=== PATIENT | female | born 1985 | race Caucasian/White ===

== ENCOUNTER 2016-07-29 12:30 | Emergency (ER) | payer SELFPAY ==
--- NOTE | 2016-07-29 12:39 | ER Document Report ---
ED Medical Screen (RME) - General Stated Complaint: URINARY PROBLEM Time seen by provider: 12:37 Mode of Arrival: Ambulatory Information source: Patient Notes: 30 yo female presents to ed for urinary frequency urgency and pain with urination. for 3 weeks taken azo and cranberry. LMP 07/27/15 TRAVEL OUTSIDE OF THE [place] IN LAST 30 DAYS: No - HPI Onset: Other - 3 weeks Onset/Duration: Gradual, Intermittent, Worse Quality of pain: Burning Severity: Moderate Pain Level: 3 Associated Symptoms: Other - urinary symptoms Exacerbated by: Other - urination Relieved by: Denies - Related Data Smoking: Cigarettes, Less than 1 pack/day Frequency of alcohol use: None Drug Abuse: None Allergies/Adverse Reactions: Penicillins Allergy (Verified 07/29/16 12:36) Past Medical History - Past Medical History Cardiac Medical History: Reports: Hx Hypertension Malignancy Medical History: Reports: Hx Cervical Cancer Musculoskeltal Medical History: Reports Hx Arthritis, Reports Hx Musculoskeletal Deformity, Reports Hx Musculoskeletal Trauma - bilateral ankles and clavicle fracture Traumatic Medical History: Reports: Hx Fractures - Ankle and clavicle Past Surgical History: Reports: Hx Cholecystectomy, Hx Gynecologic Surgery - Cervix removed, Hx Tubal Ligation - Immunizations Hx Diphtheria, Pertussis, Tetanus Vaccination: Yes - 2010
[2016-07-29 13:09] LABS: APPEARANCE,URINE CLEAR; BILIRUBIN,URINE NEGATIVE (NEGATIVE); GLUCOSE, URINE NEGATIVE (NEGATIVE); KETONES,URINE NEGATIVE (NEGATIVE); LEUKOCYTE ESTERASE,URINE SMALL (NEGATIVE); NITRITE,URINE NEGATIVE (NEGATIVE); PROTEIN,URINE NEGATIVE (NEGATIVE); URINE SPECIFIC GRAVITY 1.017; UROBILINOGEN,URINE NEGATIVE mg/dL (<2.0)
--- NOTE | 2016-07-29 13:29 | ER Document Report ---
HPI - HPI Patient complains to provider of: urinary symptoms Onset: Other - 3 weeks Onset/Duration: Worse Quality of pain: Burning Pain Level: 3 Context: Patient complains of low back pain with dysuria and urinary frequency for the past 3 weeks. Patient states that her symptoms worsened over the past week. Patient denies any fever, nausea, or vomiting at this time. Patient also complains of lower pelvic tenderness that has started to develop. Associated Symptoms: Other - Dysuria, frequency, back pain. denies: Fever Exacerbated by: Denies Relieved by: Denies Similar symptoms previously: Yes Recently seen / treated by doctor: No - ROS ROS below otherwise negative: Yes Systems Reviewed and Negative: Yes All other systems reviewed and negative - CONSTITUTIONAL Constitutional: DENIES: Fever, Chills - RESPIRATORY Respiratory: DENIES: Trouble Breathing - GASTROINTESTINAL Gastrointestinal: REPORTS: Abdominal Pain. DENIES: Nausea, Patient vomiting, Diarrhea - URINARY Urinary: REPORTS: Dysuria, Frequency - REPRODUCTIVE LMP: 07/27/2016 Reproductive: DENIES: : - MUSCULOSKELETAL Musculoskeletal: REPORTS: Back Pain. DENIES: Extremity pain - DERM Skin Color: Normal Skin Problems: None Past Medical History - General Information source: Patient Last Menstrual Period: 07/28/2016 - Social History Smoking Status: Never Smoker Chew tobacco use (# tins/day): No Frequency of alcohol use: None Drug Abuse: None Occupation: none Lives with: Family Family History: CAD, COPD, CVA, DM, Hyperlipidemia, Hypertension, Malignancy, Thyroid Disfunction Patient has suicidal ideation: No Patient has homicidal ideation: No - Past Medical History Cardiac Medical History: Reports: Hx Hypertension Malignancy Medical History: Reports: Hx Cervical Cancer Musculoskeltal Medical History: Reports Hx Arthritis, Reports Hx Musculoskeletal Deformity, Reports Hx Musculoskeletal Trauma - bilateral ankles and clavicle fracture Traumatic Medical History: Reports: Hx Fractures - Ankle and clavicle Past Surgical History: Reports: Hx Cholecystectomy, Hx Gynecologic Surgery - Cervix removed, Hx Tubal Ligation - Immunizations Hx Diphtheria, Pertussis, Tetanus Vaccination: Yes - 2010 Vertical Provider Document - CONSTITUTIONAL Agree With Documented VS: Yes Exam Limitations: No Limitations General Appearance: WD/WN, No Apparent Distress - INFECTION CONTROL TRAVEL OUTSIDE OF THE [place] IN LAST 30 DAYS: No - HEENT HEENT: Atraumatic, Normocephalic - NECK Neck: Normal Inspection, Supple - RESPIRATORY Respiratory: Breath Sounds Normal, No Respiratory Distress, Chest Non-Tender O2 Sat by Pulse Oximetry: 100 - CARDIOVASCULAR Cardiovascular: Regular Rate, Regular Rhythm, No Murmur - GI/ABDOMEN Gastrointestinal: Abdomen Soft, Abdomen Tender - lower pelvic tenderness - BACK Back: Normal Inspection. negative: CVA Tenderness-Right, CVA Tenderness-Left - MUSCULOSKELETAL/EXTREMETIES Musculoskeletal/Extremeties: TRACY ELI - NEURO Level of Consciousness: Awake, Alert, Appropriate - DERM Integumentary: Warm, Dry, No Rash Course - Re-evaluation Re-evalutation: 07/29/16 16:21 Patient states low back pain is currently resolved but right lower quadrant and lower pelvic pain has worsened. Patient is requesting additional pain medication. 07/29/16 Patient's abdomen soft, no guarding, minimal lower pelvic tenderness. Discussed plan of care with patient. Discussed worsening signs or symptoms that patient should return immediately for. Patient verbalized understanding and agrees with plan of care. Patient presents with abdominal pain without signs of peritonitis or other life- threatening or serious etiology. Patient appears stable for discharge and has been instructed to return immediately if the symptoms worsen in any way. - Vital Signs Vital signs: Temp Pulse Resp BP Pulse Ox 98.1 F 82 20 150/97 H 100 07/29/16 12:39 07/29/16 12:39 07/29/16 12:39 07/29/16 12:39 07/29/16 12:39 - Laboratory Result Diagrams: 07/29/16 13:45 07/29/16 13:45 Laboratory results interpreted by me: 07/29/16 12:41 Urine Blood LARGE H Ur Leukocyte Esterase SMALL H 07/29/16 18:31 Labs- Entire Visit 07/29/16 07/29/16 07/29/16 12:41 12:41 13:45 WBC 11.3 H RBC 4.59 Hgb 14.0 Hct 40.1 MCV 87 MCH 30.5 MCHC 34.9 RDW 12.8 Plt Count 401 Seg Neutrophils % 64.2 Lymphocytes % 25.2 Monocytes % 6.6 Eosinophils % 3.1 Basophils % 0.9 Absolute Neutrophils 7.3 Absolute Lymphocytes 2.9 Absolute Monocytes 0.7 Absolute Eosinophils 0.4 Absolute Basophils 0.1 Sodium Potassium Chloride Carbon Dioxide Anion Gap BUN Creatinine Est GFR ( Amer) Est GFR (Non-Af Amer) Glucose Calcium Total Bilirubin Direct Bilirubin AST ALT Alkaline Phosphatase Total Protein Albumin Urine Color YELLOW Urine Appearance CLEAR Urine pH 5.0 Ur Specific [place] 1.017 Urine Protein NEGATIVE Urine Glucose (UA) NEGATIVE Urine Ketones NEGATIVE Urine Blood LARGE H Urine Nitrite NEGATIVE Urine Bilirubin NEGATIVE Urine Urobilinogen NEGATIVE Ur Leukocyte Esterase SMALL H Urine WBC (Auto) 4 Urine RBC (Auto) 171 Urine Bacteria (Auto) TRACE Squamous Epi Cells Auto 2 Urine Mucus (Auto) RARE Urine Ascorbic Acid NEGATIVE Urine HCG, Qual NEGATIVE Bacteria (Wet Prep) Trichomonas (Wet Prep) Vaginal WBC Vaginal RBC Vaginal Yeast Chlamydia DNA (PCR) N.gonorrhoeae DNA (PCR) 07/29/16 07/29/16 07/29/16 13:45 13:45 14:11 WBC RBC Hgb Hct MCV MCH MCHC RDW Plt Count Seg Neutrophils % Lymphocytes % Monocytes % Eosinophils % Basophils % Absolute Neutrophils Absolute Lymphocytes Absolute Monocytes Absolute Eosinophils Absolute Basophils Sodium 140.9 Potassium 4.1 Chloride 107 Carbon Dioxide 23 Anion Gap 11 BUN 15 Creatinine 0.67 Est GFR ( Amer) > 60 Est GFR (Non-Af Amer) > 60 Glucose 76 Calcium 9.7 Total Bilirubin 0.2 Direct Bilirubin 0.0 AST 13 L ALT 29 Alkaline Phosphatase 92 Total Protein 6.0 L Albumin 3.7 Urine Color YELLOW Urine Appearance CLEAR Urine pH 5.0 Ur Specific [place] 1.018 Urine Protein NEGATIVE Urine Glucose (UA) NEGATIVE Urine Ketones NEGATIVE Urine Blood NEGATIVE Urine Nitrite NEGATIVE Urine Bilirubin NEGATIVE Urine Urobilinogen NEGATIVE Ur Leukocyte Esterase NEGATIVE Urine WBC (Auto) 0 Urine RBC (Auto) 0 Urine Bacteria (Auto) Squamous Epi Cells Auto <1 Urine Mucus (Auto) Urine Ascorbic Acid NEGATIVE Urine HCG, Qual Bacteria (Wet Prep) Trichomonas (Wet Prep) Vaginal WBC Vaginal RBC Vaginal Yeast Chlamydia DNA (PCR) NOT DETECTED N.gonorrhoeae DNA (PCR) NOT DETECTED 07/29/16 14:11 WBC RBC Hgb Hct MCV MCH MCHC RDW Plt Count Seg Neutrophils % Lymphocytes % Monocytes % Eosinophils % Basophils % Absolute Neutrophils Absolute Lymphocytes Absolute Monocytes Absolute Eosinophils Absolute Basophils Sodium Potassium Chloride Carbon Dioxide Anion Gap BUN Creatinine Est GFR ( Amer) Est GFR (Non-Af Amer) Glucose Calcium Total Bilirubin Direct Bilirubin AST ALT Alkaline Phosphatase Total Protein Albumin Urine Color Urine Appearance Urine pH Ur Specific [place] Urine Protein Urine Glucose (UA) Urine Ketones Urine Blood Urine Nitrite Urine Bilirubin Urine Urobilinogen Ur Leukocyte Esterase Urine WBC (Auto) Urine RBC (Auto) Urine Bacteria (Auto) Squamous Epi Cells Auto Urine Mucus (Auto) Urine Ascorbic Acid Urine HCG, Qual Bacteria (Wet Prep) 3+ BACTERIA SEEN Trichomonas (Wet Prep) NO TRICHOMONAS SEEN Vaginal WBC FEW WBCS SEEN Vaginal RBC 3+ RBCS SEEN Vaginal Yeast NO YEAST SEEN Chlamydia DNA (PCR) N.gonorrhoeae DNA (PCR) 07/29/16 19:11 - Diagnostic Test Radiology reviewed: Image reviewed, Reports reviewed Discharge - Discharge Clinical Impression: Urinary symptom or sign, Flank pain Abdominal pain Qualifiers: Abdominal location: right lower quadrant Qualified Code(s): R10.31 - Right lower quadrant pain Condition: Stable Disposition: HOME, SELF-CARE Instructions: Abdominal Pain ([facility]), Observation for Appendicitis ([facility]), Constipation ([facility]), Flank Pain ([facility]) Additional Instructions: Return immediately for any new or worsening symptoms Followup with your primary care provider, call tomorrow to make a followup appointment Urine culture is pending, we will call if you need any additional treatment Stay well hydrated Your blood pressure was minimally elevated today. Have a primary doctor recheck this in the next few days Prescriptions: Phenazopyridine HCl [Pyridium 200 mg Tablet] 200 mg PO TID #12 tablet Promethazine HCl [Phenergan 25 mg Tablet] 25 mg PO Q6H PRN #10 tablet PRN Reason: Referrals: [facility] [Provider Group] - 08/01/16
[2016-07-29] MEDS ORDERED: IBUPROFEN 800 MG TABLET PO ONE (14:16)
[2016-07-29 14:17] LABS: ABSOLUTE BASOPHILS # (AUTO) 0.1 10^3/uL (0.0-0.2); ABSOLUTE EOSINOPHILS # (AUTO) 0.4 10^3/uL (0.0-0.6); ABSOLUTE LYMPHOCYTES (AUTO) 2.9 10^3/uL (0.5-4.7); ABSOLUTE MONOCYTES (AUTO) 0.7 10^3/uL (0.1-1.4); ABSOLUTE NEUT (AUTO) 7.3 10^3/uL (1.7-8.2); BASOPHILS % (AUTO) 0.9 % (0-2); EOSINOPHILS % (AUTO) 3.1 % (0-6); HEMATOCRIT 40.1 % (36.0-47.0); HGB HCT DIFFERENCE 1.9; LYMPHOCYTES % (AUTO) 25.2 % (13-45); MEAN CORPUSCULAR HEMOGLOBIN 30.5 pg (27.0-33.4); MEAN CORPUSCULAR HGB CONC 34.9 g/dL (32.0-36.0); MEAN CORPUSCULAR VOLUME 87 fl (80-97); MONOCYTES % (AUTO) 6.6 % (3-13); RED BLOOD COUNT 4.59 10^6/uL (3.72-5.28); RED CELL DISTRIBUTION WIDTH 12.8 % (11.5-14.0); SEGMENTED NEUTROPHILS % (AUTO) 64.2 % (42-78); WHITE BLOOD COUNT 11.3 10^3/uL (4.0-10.5)
[2016-07-29 14:21] LABS: APPEARANCE,URINE CLEAR; BILIRUBIN,URINE NEGATIVE (NEGATIVE); GLUCOSE, URINE NEGATIVE (NEGATIVE); KETONES,URINE NEGATIVE (NEGATIVE); LEUKOCYTE ESTERASE,URINE NEGATIVE (NEGATIVE); NITRITE,URINE NEGATIVE (NEGATIVE); PROTEIN,URINE NEGATIVE (NEGATIVE); URINE SPECIFIC GRAVITY 1.018; UROBILINOGEN,URINE NEGATIVE mg/dL (<2.0)
[2016-07-29] MEDS ORDERED: ONDANSETRON 4 MG TAB.RAPDIS PO ONE (14:34)
[2016-07-29 14:41] LABS: ALANINE AMINOTRANSFERASE 29 U/L (9-52); ALBUMIN 3.7 g/dL (3.5-5.0); ALKALINE PHOSPHATASE 92 U/L (38-126); ANION GAP 11 (5-19); ASPARTATE AMINO TRANSFERASE 13 U/L (14-36); BILIRUBIN,TOTAL 0.2 mg/dL (0.2-1.3); BLOOD UREA NITROGEN 15 mg/dL (7-20); CALCIUM 9.7 mg/dL (8.4-10.2); CARBON DIOXIDE 23 mmol/L (22-30); CHLORIDE 107 mmol/L (98-107); CREATININE RESULT 0.67 mg/dL (0.52-1.25); GLUCOSE 76 mg/dL (75-110); POTASSIUM 4.1 mmol/L (3.6-5.0); SODIUM 140.9 mmol/L (137-145)
[2016-07-29 15:54] LABS: CHLAM PCR NOT DETECTED (NOT DETECT)
[2016-07-29] MEDS ORDERED: NORMAL SALINE 1000 ML 1,000 ML IV ONE (16:19)
[2016-07-29] MEDS ORDERED: MORPHINE SULFATE 10 MG/ML INJ IV ONE (16:19)
[2016-07-29] MEDS ORDERED: MAGNESIUM CITRATE 296 ML BOTTLE PO ONE (18:30)
[2016-07-29] MEDS ORDERED: HYDROCODONE/ACETAMINOPHEN 5-325 MG 6 TAB/DSPK PO PRN (18:31)
[2016-07-29 18:39] VITALS: BP 133/88
== END 2016-07-29 18:47 | disposition home or self-care (01) ==
LOC: ER 12:30
DX: R30.0 Dysuria (principal); R35.0 Frequency of micturition; R10.31 Right lower quadrant pain; R10.2 Pelvic and perineal pain; M54.5 Low back pain; I10 Essential (primary) hypertension; Z85.41 Personal history of malignant neoplasm of cervix uteri; Z90.712 Acquired absence of cervix with remaining uterus; Z98.51 Tubal ligation status; Z90.49 Acquired absence of other specified parts of digestive tract
CPT/HCPCS: 99284; 51701; 96374; 36415; 87086; 87210; 85025; 81025; 80053; 81001; 87491; 87591; 76830; 93976; 74177; J3490; S0119; J2270

== ENCOUNTER 2016-10-01 11:08 | Emergency (ER) | payer SELFPAY ==
--- NOTE | 2016-10-01 11:16 | ER Document Report ---
ED Medical Screen (RME) - General Stated Complaint: LEFT FOOT PAIN Mode of Arrival: Ambulatory Information source: Patient Notes: Patient presents to the emergency department with complaints of left foot pain that started approximately 2 weeks ago. Patient reports plantar pain, to her heel. Patient also reports pain to the dorsal area. Denies trauma. Denies pmh of injury to foot I have greeted and performed a rapid initial assessment of this patient. A comprehensive ED assessment and evaluation of the patient, analysis of test results and completion of the medical decision making process will be conducted by additional ED providers. TRAVEL OUTSIDE OF THE [place] IN LAST 30 DAYS: No - Related Data Allergies/Adverse Reactions: Penicillins Allergy (Verified 07/29/16 12:36) Past Medical History - Past Medical History Cardiac Medical History: Reports: Hx Hypertension Malignancy Medical History: Reports: Hx Cervical Cancer Musculoskeltal Medical History: Reports Hx Arthritis, Reports Hx Musculoskeletal Deformity, Reports Hx Musculoskeletal Trauma - bilateral ankles and clavicle fracture Traumatic Medical History: Reports: Hx Fractures - Ankle and clavicle Past Surgical History: Reports: Hx Cholecystectomy, Hx Gynecologic Surgery - Cervix removed, Hx Tubal Ligation - Immunizations Hx Diphtheria, Pertussis, Tetanus Vaccination: Yes - 2010
--- NOTE | 2016-10-01 12:07 | ER Document Report ---
ED Extremity Problem, Lower - General Chief Complaint: Foot Pain Stated Complaint: LEFT FOOT PAIN Mode of Arrival: Ambulatory Information source: Patient Notes: 31 y/o F presents to ED c/o left foot pain. Pt reports over the last several months has had intermittently persistent left foot pain particularly to left heel area. States pain seems to be worse in the evenings after work or after prolonged standing or walking. Reports pain has become more persistent over the last week. Denies obvious injury or trauma, swelling, redness, warmth, numbness/ tingling, or discoloration. TRAVEL OUTSIDE OF THE [place] IN LAST 30 DAYS: No - HPI Patient complains to provider of: Pain Location: Foot Onset/Duration: Intermittent, Persistent Quality of pain: Achy Severity: Moderate Pain Level: 3 Context: Prolonged pressure on ext Recent injury: No Associated symptoms: Painful ambulation Exacerbated by: Movement, Walking Relieved by: Elevation, Ice, Rest - Related Data Allergies/Adverse Reactions: No Known Allergies Allergy (Unverified 10/01/16 11:15) Past Medical History - General Information source: Patient - Social History Smoking Status: Current Every Day Smoker Chew tobacco use (# tins/day): No Frequency of alcohol use: None Drug Abuse: None Lives with: Family Family History: CAD, COPD, CVA, DM, Hyperlipidemia, Hypertension, Malignancy, Thyroid Disfunction Patient has suicidal ideation: No Patient has homicidal ideation: No - Past Medical History Cardiac Medical History: Reports: Hx Hypertension Renal/ Medical History: Denies: Hx Peritoneal Dialysis Malignancy Medical History: Reports: Hx Cervical Cancer Musculoskeltal Medical History: Reports Hx Arthritis, Reports Hx Musculoskeletal Deformity, Reports Hx Musculoskeletal Trauma - bilateral ankles and clavicle fracture Traumatic Medical History: Reports: Hx Fractures - Ankle and clavicle Past Surgical History: Reports: Hx Cholecystectomy, Hx Gynecologic Surgery - Cervix removed, Hx Tubal Ligation - Immunizations Hx Diphtheria, Pertussis, Tetanus Vaccination: Yes Review of Systems - Review of Systems Constitutional: No symptoms reported EENT: No symptoms reported Cardiovascular: No symptoms reported Respiratory: No symptoms reported Gastrointestinal: No symptoms reported Genitourinary: No symptoms reported Female Genitourinary: No symptoms reported Musculoskeletal: See HPI Skin: No symptoms reported Hematologic/Lymphatic: No symptoms reported Neurological/Psychological: No symptoms reported -: Yes All other systems reviewed and negative Physical Exam - Vital signs Vitals: Temp Pulse Resp BP Pulse Ox 98.3 F 64 18 138/117 H 98 10/01/16 12:30 10/01/16 12:30 10/01/16 12:30 10/01/16 12:30 10/01/16 12:30 Interpretation: Hypertensive - asymptomatic HTN. Hx HTN states has not taken morning medication - General General appearance: Appears well, Alert In distress: None - HEENT Head: Normocephalic, Atraumatic Eyes: Normal Pupils: PERRL - Respiratory Respiratory status: No respiratory distress Chest status: Nontender Breath sounds: Normal Chest palpation: Normal - Cardiovascular Rhythm: Regular Heart sounds: Normal auscultation Murmur: No Pulses: Normal: Radial, Posterior tibial, Dorsalis pedis Normal capillary refill: Yes - Extremities General upper extremity: Normal inspection, Nontender, Normal color, Normal ROM , Normal strength, Normal temperature. No: Tender, Edema General lower extremity: Normal inspection, Nontender, Normal color, Normal ROM , Normal strength, Normal temperature, Normal weight bearing. No: Tender, Edema , Eduin's sign Calf: Normal, Nontender Ankle: Normal, Nontender Foot: Tender - mild tenderness with palpation to plantar aspect of left heel. No swelling, erythema, bruising, warmth, or discoloration. Motor and neurovascular function intact., No evidence of FB. No: Deformity, Edema, Instability, Puncture wound - Neurological Neuro grossly intact: Yes Cognition: Normal Orientation: AAOx4 [place] Coma Scale Eye Opening: Spontaneous [place] Coma Scale Verbal: Oriented [place] Coma Scale Motor: Obeys Commands [place] Coma Scale Total: 15 Speech: Normal Motor strength normal: LUE, RUE, LLE, RLE Sensory: Normal - Skin Skin Temperature: Warm Skin Moisture: Dry Skin Color: Normal Course - Re-evaluation Re-evalutation: 10/01/16 12:12 Pt hemodynamically stable, in no distress. Xray shows heel spur otherwise no significant abnormalities which correlates with patient's reported symptoms. Pt declined post-op shoe or crutches. Pt appears stable for discharge and agrees with home care, follow-up, and ED return precautions. - Vital Signs Vital signs: Temp Pulse Resp BP Pulse Ox 98.3 F 82 16 138/117 H 98 10/01/16 12:37 10/01/16 12:37 10/01/16 12:37 10/01/16 12:37 10/01/16 12:37 - Diagnostic Test Radiology reviewed: Image reviewed, Reports reviewed Discharge - Discharge Clinical Impression: Heel spur Qualifiers: Laterality: left Qualified Code(s): M77.32 - Calcaneal spur, left foot Condition: Stable Disposition: HOME, SELF-CARE Instructions: Plantar Fasciitis or Heel Spur ([facility]), Exercises for the Foot Muscles ([facility]), Anti-Inflammatory Medication ([facility]), Ice & Elevation ([facility]) Additional Instructions: Use well padded shoes or insoles/heel pads. Follow-up with your primary care provider and podiatry this week. Return to the Emergency Department for any worsening symptoms or concerns. Prescriptions: Naproxen [Naprosyn 375 Mg Tablet] 375 mg PO BIDP PRN #10 tablet PRN Reason: Forms: Elevated Blood Pressure Referrals: JOSE M WHEELER DPM [ACTIVE STAFF] - Follow up in 3-5 days
[2016-10-01 12:40] VITALS: BP 138/117
== END 2016-10-01 12:38 | disposition home or self-care (01) ==
LOC: ER 11:08
DX: M77.32 Calcaneal spur, left foot (principal); M79.672 Pain in left foot; F17.200 Nicotine dependence, unspecified, uncomplicated; I10 Essential (primary) hypertension; Z85.41 Personal history of malignant neoplasm of cervix uteri; Z90.49 Acquired absence of other specified parts of digestive tract; Z98.51 Tubal ligation status; Z90.710 Acquired absence of both cervix and uterus
CPT/HCPCS: 99283

== ENCOUNTER 2016-11-22 12:54 | Emergency (ER) | payer SELFPAY | END 2016-11-22 13:15 | disposition left against medical advice (07) | LOC: ER 12:54 | DX: Z53.9 Procedure and treatment not carried out, unspecified reason (principal); M25.532 Pain in left wrist ==

== ENCOUNTER 2016-11-24 11:02 | Emergency (ER) | payer SELFPAY ==
[2016-11-24 11:12] VITALS: BP 138/88
[2016-11-24] MEDS ORDERED: IBUPROFEN 800 MG TABLET PO ONE (11:38)
--- NOTE | 2016-11-24 11:39 | ER Document Report ---
ED Hand/Wrist Injury - General Chief Complaint: Wrist Injury Stated Complaint: FALL WRIST PAIN Time seen by provider: 11:39 Mode of Arrival: Ambulatory Information source: Patient Notes: 31-year-old female presents to ED for pain and injury to the left wrist. States she was going up the stairs and she fell landing on her hands trying to catch her self. A cart 2 days ago the pain continues. TRAVEL OUTSIDE OF THE [place] IN LAST 30 DAYS: No - HPI Injury to: Wrist - Left Onset: Other - 2 days ago Where: Home, Indoors Timing: Still present Quality of pain: Achy, Dull Severity: Moderate Pain Level: 3 Context: Fall - Related Data Allergies/Adverse Reactions: No Known Allergies Allergy (Verified 11/24/16 11:10) Past Medical History - General Information source: Patient - Social History Smoking Status: Current Every Day Smoker Cigarette use (# per day): Yes - ppd Chew tobacco use (# tins/day): No Smoking Education Provided: Yes - less than 2 min Frequency of alcohol use: None Drug Abuse: None Occupation: none Lives with: Family Family History: CAD, COPD, CVA, DM, Hyperlipidemia, Hypertension, Malignancy, Thyroid Disfunction Patient has suicidal ideation: No Patient has homicidal ideation: No - Past Medical History Cardiac Medical History: Reports: Hx Hypertension Pulmonary Medical History: Reports: None EENT Medical History: Reports: None Neurological Medical History: Reports: None Endocrine Medical History: Reports: None Renal/ Medical History: Reports: None Malignancy Medical History: Reports: Hx Cervical Cancer GI Medical History: Reports: None Musculoskeltal Medical History: Reports Hx Arthritis, Reports Hx Musculoskeletal Deformity, Reports Hx Musculoskeletal Trauma - bilateral ankles and clavicle fracture Skin Medical History: Reports None Psychiatric Medical History: Reports: None Traumatic Medical History: Reports: Hx Fractures - Ankle and clavicle Infectious Medical History: Reports: None Past Surgical History: Reports: Hx Cholecystectomy, Hx Gynecologic Surgery - Cervix removed, Hx Tubal Ligation - Immunizations Hx Diphtheria, Pertussis, Tetanus Vaccination: Yes Review of Systems - Review of Systems Constitutional: No symptoms reported EENT: No symptoms reported Cardiovascular: No symptoms reported Respiratory: No symptoms reported Gastrointestinal: No symptoms reported Genitourinary: No symptoms reported Female Genitourinary: No symptoms reported Musculoskeletal: Other - left wrist [place] Skin: No symptoms reported Hematologic/Lymphatic: No symptoms reported Neurological/Psychological: No symptoms reported -: Yes All other systems reviewed and negative Physical Exam - Vital signs Vitals: Temp Pulse Resp BP Pulse Ox 98.3 F 95 18 138/88 H 98 11/24/16 11:10 11/24/16 11:10 11/24/16 11:10 11/24/16 11:10 11/24/16 11:10 Interpretation: Normal - General General appearance: Appears well, Alert - HEENT Head: Normocephalic, Atraumatic Eyes: Normal Pupils: PERRL - Respiratory Respiratory status: No respiratory distress Chest status: Nontender Breath sounds: Normal Chest palpation: Normal - Cardiovascular Rhythm: Regular Heart sounds: Normal auscultation Murmur: No - Abdominal Inspection: Normal Distension: No distension Bowel sounds: Normal Tenderness: Nontender Organomegaly: No organomegaly - Back Back: Normal, Nontender - Extremities General upper extremity: Normal color, Normal ROM, Normal temperature General lower extremity: Normal inspection, Nontender, Normal color, Normal ROM , Normal temperature, Normal weight bearing. No: Eduin's sign Wrist: Tender, Limited ROM - due to pain. No: Abrasion, Axial load of thumb pain, Deformity, Dislocation, Ecchymosis, Instability, Laceration, Navicular tenderness - Neurological Neuro grossly intact: Yes Cognition: Normal Orientation: AAOx4 Perry Coma Scale Eye Opening: Spontaneous Perry Coma Scale Verbal: Oriented Perry Coma Scale Motor: Obeys Commands Perry Coma Scale Total: 15 Speech: Normal Motor strength normal: LUE, RUE, LLE, RLE Sensory: Normal - Psychological Associated symptoms: Normal affect, Normal mood - Skin Skin Temperature: Warm Skin Moisture: Dry Skin Color: Normal Course - Re-evaluation Re-evalutation: 11/24/16 14:59 Discussed x-ray with patient and written report given to patient to follow up with primary doctor on with orthopedics if pain continues. Patient treated with a cock-up splint and instructed on use of ice and elevation for discomfort as well as Tylenol and ibuprofen. - Vital Signs Vital signs: Temp Pulse Resp BP Pulse Ox 98.3 F 95 18 138/88 H 98 11/24/16 11:11 11/24/16 11:11 11/24/16 11:11 11/24/16 11:11 11/24/16 11:11 - Diagnostic Test Radiology reviewed: Image reviewed, Reports reviewed Procedures - Immobilization Left Wrist Time completed: 11:40 Immobilizer type: Cock-up Performed by: PCT Post-Proc Neuro Vasc Exam: Normal Alignment checked and good: Yes Discharge - Discharge Clinical Impression: Fall (on) (from) other stairs and steps, initial encounter Left wrist sprain Qualifiers: Encounter type: initial encounter Qualified Code(s): S63.502A - Unspecified sprain of left wrist, initial encounter Condition: Stable Disposition: HOME, SELF-CARE Additional Instructions: SPRAIN: Your injury is a sprain. A sprain results from stretching or tearing of the ligaments, usually from a twisting injury. The ligaments will require time and protection in order to heal properly. Many sprains are quite disabling and should be taken seriously. The usual initial treatment of sprains is cold packs, elevation, and rest of the injured area. Your physician has assessed the seriousness of your ligament injury, and has outlined a treatment plan. Understand that this treatment may change, depending on how you progress. If a re-examination was recommended, it is important that you follow up as instructed. Call the doctor any time if there is severe pain, numbness, or loss of function in the injured area. SPLINT PRECAUTIONS: A splint has been placed. This will protect the area while healing begins. Your problem does NOT normally require a cast. It MUST, however, be held still! Keep the splint on ALL THE TIME until instructed to remove it by the doctor. As you begin to use the area, be careful. You shouldn't do anything which causes discomfort -- you may disturb the injury even with the splint in place. After the initial period of rest and elevation, if splint does not prevent pain when you move, come back. You may require placement of a different splint , or a cast. If there is unexpected severe pain, or numbness, discoloration, or swelling beyond the splint, you should return at once. If you feel that the splint has broken or become loose, come back. ICE & ELEVATION: Apply ice packs frequently against the painful area. Many different schedules are recommended, such as "20 minutes on, 20 minutes off" or "one hour ice, two hours rest." If you need to work, you may need to go longer between ice treatments. You should plan to have the area ice packed AT LEAST one- fourth of the time. The ice should be applied over the wrap, tape, or splint, or over a layer of cloth -- not directly against the skin. Some ice bags have a built-in cloth and can be put directly on the skin. Your injured part should be elevated as much as possible over the next 48 hours. Try to keep the injury above the level of the heart. Avoid use of the injured area. Elevation and rest will decrease the swelling. USE OF [id number] IBUPROFEN: Ibuprofen (Advil, Nuprin, Medipren, Motrin IB) is a medication for fever and pain control. In addition, it has anti- inflammatory effects which may be beneficial, especially in the treatment of injuries. It's best to take ibuprofen with food. Persons with ulcer disease or allergy to aspirin should notify their physician of this before taking ibuprofen. Ibuprofen can be given every four to six hours, for a total of four doses daily. Age Pain or fever dose Antiinflammatory dose 6-8 yr 200 mg (1 tab) 200 mg (1 tab) 9-11 yr 200 mg (1 tab) 200-400 mg (1-2 tab) 11-14 yr 200-400 mg (1-2 tab) 400 mg (2 tab) 15-adult 400 mg (2 tab) 600 mg (3 tab) FOLLOW-UP CARE: If you have been referred to a physician for follow-up care, call the physician s office for an appointment as you were instructed or within the next two days. If you experience worsening or a significant change in your symptoms, notify the physician immediately or return to the Emergency Department at any time for re-evaluation. Prescriptions: Ibuprofen 600 mg PO Q8HP PRN #20 tablet PRN Reason: Forms: Elevated Blood Pressure, Smoking Cessation Education Referrals: NAWAF TORRES MD [Primary Care Provider] - Follow up as needed RACHELE HARRIS MD [ACTIVE STAFF] - Follow up as needed
== END 2016-11-24 11:51 | disposition home or self-care (01) ==
LOC: ER 11:02
DX: S63.502A Unspecified sprain of left wrist, initial encounter (principal); W10.9XXA Fall (on) (from) unspecified stairs and steps, initial encounter; Y92.009 Unspecified place in unspecified non-institutional (private) residence as the place of occurrence of the external cause; F17.210 Nicotine dependence, cigarettes, uncomplicated; I10 Essential (primary) hypertension; Z85.41 Personal history of malignant neoplasm of cervix uteri; Z90.49 Acquired absence of other specified parts of digestive tract; Z90.712 Acquired absence of cervix with remaining uterus; Z98.51 Tubal ligation status
CPT/HCPCS: 99283; 73110; L3984

== ENCOUNTER 2017-02-15 09:09 | Emergency (ER) | payer SELFPAY ==
[2017-02-15 09:15] VITALS: BP 153/110
--- NOTE | 2017-02-15 09:38 | ER Document Report ---
HPI - HPI Pain Level: 2 Context: 31 yo female c/o chronic left heel pain and pain in left knee x 3 days. pt has known heel spurs but has not been able to follow up with podiatry due to finances. heel pain has increased, causing her to turn her foot while she walks and now her left knee hurts. denies and new trauma. no bruising, redness or warmth. no fever Associated Symptoms: None Exacerbated by: Walking Relieved by: Denies Similar symptoms previously: Yes Recently seen / treated by doctor: No - ROS Systems Reviewed and Negative: Yes All other systems reviewed and negative - REPRODUCTIVE Reproductive: DENIES: : - DERM Skin Color: Normal Past Medical History - General Information source: Patient - Social History Smoking Status: Current Every Day Smoker Chew tobacco use (# tins/day): No Frequency of alcohol use: None Drug Abuse: None Lives with: Family Family History: CAD, COPD, CVA, DM, Hyperlipidemia, Hypertension, Malignancy, Thyroid Disfunction - Past Medical History Cardiac Medical History: Reports: Hx Hypertension Renal/ Medical History: Denies: Hx Peritoneal Dialysis Malignancy Medical History: Reports: Hx Cervical Cancer Musculoskeltal Medical History: Reports Hx Arthritis, Reports Hx Musculoskeletal Deformity, Reports Hx Musculoskeletal Trauma - bilateral ankles and clavicle fracture Traumatic Medical History: Reports: Hx Fractures - Ankle and clavicle Past Surgical History: Reports: Hx Cholecystectomy, Hx Gynecologic Surgery - Cervix removed, Hx Tubal Ligation - Immunizations Hx Diphtheria, Pertussis, Tetanus Vaccination: Yes Vertical Provider Document - CONSTITUTIONAL Agree With Documented VS: Yes - INFECTION CONTROL TRAVEL OUTSIDE OF THE [place] IN LAST 30 DAYS: No - HEENT HEENT: Atraumatic, PERRLA - NECK Neck: Normal Inspection, Supple - RESPIRATORY Respiratory: Breath Sounds Normal, No Respiratory Distress O2 Sat by Pulse Oximetry: 100 - CARDIOVASCULAR Cardiovascular: Regular Rate, Regular Rhythm - MUSCULOSKELETAL/EXTREMETIES Musculoskeletal/Extremeties: Tender - left dorsal mid heel pain. left knee with infrapatellar tenderness. neg drawer. no effusion. no lateral compartment pain, No Edema. negative: Eccymosis Course - Re-evaluation Re-evalutation: 02/15/17 09:44 BP noted to be elevated. pt is aware of HTN. no meds. pt is symptomatic with blood pressure - Vital Signs Vital signs: Temp Pulse Resp BP Pulse Ox 97.9 F 96 16 153/110 H 100 02/15/17 09:14 02/15/17 09:14 02/15/17 09:14 02/15/17 09:14 02/15/17 09:14 Discharge - Discharge Clinical Impression: Pain of left heel, Left knee pain Condition: Stable Disposition: HOME, SELF-CARE Instructions: Ice & Elevation ([facility]), Steroid Medication, Oral Narcotic Medication ([facility]) Additional Instructions: please follow up with primary care for further evaluation and treatment of pain your blood pressure is elevated today follow up with your primary care for further evaluation and treatment of blodo pressure keep blood pressure diary meds as prescribed Prescriptions: Hydrocodone/Acetaminophen [Yarnell 5-325 mg Tablet] 1 tab PO Q4H PRN #15 tablet PRN Reason: Prednisone [Deltasone 20 mg Tablet] 2 tab PO BID #16 tablet Forms: Elevated Blood Pressure
== END 2017-02-15 09:50 | disposition home or self-care (01) ==
LOC: ER 09:09
DX: G89.29 Other chronic pain (principal); M79.672 Pain in left foot; M77.30 Calcaneal spur, unspecified foot; M25.562 Pain in left knee; F17.200 Nicotine dependence, unspecified, uncomplicated; I10 Essential (primary) hypertension; Z85.41 Personal history of malignant neoplasm of cervix uteri
CPT/HCPCS: 99283

== ENCOUNTER 2017-03-12 14:59 | Emergency (ER) | payer SELFPAY ==
[2017-03-12 15:34] VITALS: BP 150/93
--- NOTE | 2017-03-12 15:48 | ER Document Report ---
ED Oral Problem - General Chief Complaint: Mouth Problem Stated Complaint: MOUTH PAIN Time Seen by Provider: 03/12/17 15:43 Mode of Arrival: Ambulatory Information source: Patient Notes: 30-year-old female with a history of dental caries status post dental extractions who comes in with irritation of the mouth from wearing the dentures. Patient is concerned she is got an oral abscess. Patient denies fever. Patient denies difficulty breathing or difficulty swallowing. TRAVEL OUTSIDE OF THE [place] IN LAST 30 DAYS: No - HPI Patient complains to provider of: Swelling of jaw Onset: Last week Onset: Gradual Quality of pain: Dull Severity: Moderate Pain Level: 4 - Is Context: Recent dental extractions Sore throat: Mild Swollen jaw/face: Mild Associated symptoms: denies: Decreased appetite, Earache, Toothache Relieved by: Nothing Similar symptoms previously: Yes Recently seen / treated by doctor/dentist: No - Related Data Allergies/Adverse Reactions: No Known Allergies Allergy (Verified 02/15/17 09:13) Past Medical History - General Information source: Patient - Social History Smoking Status: Current Every Day Smoker Cigarette use (# per day): Yes - 1 pack per day Chew tobacco use (# tins/day): No Frequency of alcohol use: None Drug Abuse: None Lives with: Family Family History: CAD, COPD, CVA, DM, Hyperlipidemia, Hypertension, Malignancy, Thyroid Disfunction Patient has suicidal ideation: No Patient has homicidal ideation: No - Past Medical History Cardiac Medical History: Reports: Hx Hypertension Renal/ Medical History: Denies: Hx Peritoneal Dialysis Malignancy Medical History: Reports: Hx Cervical Cancer Musculoskeltal Medical History: Reports Hx Arthritis, Reports Hx Musculoskeletal Deformity, Reports Hx Musculoskeletal Trauma - bilateral ankles and clavicle fracture Traumatic Medical History: Reports: Hx Fractures - Ankle and clavicle Past Surgical History: Reports: Hx Cholecystectomy, Hx Gynecologic Surgery - Cervix removed, Hx Tubal Ligation - Immunizations Hx Diphtheria, Pertussis, Tetanus Vaccination: Yes Review of Systems - Review of Systems Constitutional: denies: Chills, Fever EENT: See HPI Cardiovascular: No symptoms reported Gastrointestinal: No symptoms reported Genitourinary: No symptoms reported Female Genitourinary: No symptoms reported Musculoskeletal: No symptoms reported Skin: No symptoms reported Hematologic/Lymphatic: No symptoms reported Neurological/Psychological: No symptoms reported Physical Exam - Vital signs Vitals: Temp Pulse Resp BP Pulse Ox 98.7 F 76 17 150/93 H 98 03/12/17 15:33 03/12/17 15:33 03/12/17 15:33 03/12/17 15:33 03/12/17 15:33 Notes: Physical exam: GENERAL: 31-year-old female, alert and oriented 3, no acute distress HEAD: Atraumatic, normocephalic. EYES: Pupils equal round and reactive to light, extraocular movements intact, sclera anicteric, conjunctiva are normal. ENT: TMs normal, nares patent, oropharynx clear without exudates. Moist mucous membranes. The patient has all teeth removed from previous extractions due to dental caries. There is irritation and tenderness to palpation along the left buccal mucosa as well as the left gums. There is no obvious fluctuance. There is no obvious discharge. Mandible: There is no overlying erythema or fluctuance. There may be slight swelling over the rami without any obvious abscess. NECK: Normal range of motion, supple, no tenderness in the submental or submandibular area. No swelling. LUNGS: Breath sounds clear to auscultation bilaterally and equal. No wheezes rales or rhonchi. HEART: Regular rate and rhythm without murmurs, rubs or gallops. EXTREMITIES: Normal range of motion, no pitting or edema. No clubbing or cyanosis. NEUROLOGICAL: Cranial nerves II through XII grossly intact. Normal speech, normal gait. PSYCH: Normal mood, normal affect. SKIN: Warm, Dry, normal turgor, no rashes or lesions noted. Course - Re-evaluation Re-evalutation: 03/12/17 15:45 Patient has a lot of irritation to the buccal mucosa with significant history of dental caries having all teeth extracted. I do not see any evidence of an abscess at this point. I will place her on Pen-Vee K with good mouth kortney coverage. - Vital Signs Vital signs: Temp Pulse Resp BP Pulse Ox 98.7 F 76 17 150/93 H 98 03/12/17 15:33 03/12/17 15:33 03/12/17 15:33 03/12/17 15:33 03/12/17 15:33 Discharge - Discharge Clinical Impression: Buccal mucosa irritation, History of dental caries Condition: Stable Disposition: HOME, SELF-CARE Additional Instructions: Recommendations: Follow-up with your dentist. Salt water rinses/Listerine Delmy rinses several times a day Leave out any dentures for now. Take the penicillin as prescribed. Continue with ibuprofen or Naprosyn Take the Percocet as prescribed. The pain medicine you're taking prescribed as a narcotic. There are several important things you should know about this medicine: 1. This medicine contains Tylenol: It is important that you do not take Tylenol (or acetaminophen) while on this medicine. Tylenol is metabolized by the liver and taking too much Tylenol (acetaminophen) can lay to liver damage and even liver failure. 2. Taking narcotics for too long can lead to physical and mental dependence. Take this medicine only if really needed and in the lowest quantity to achieve pain relief. 3. Do not drink alcohol while on this medicine. Alcohol interacts with narcotics and the combination can be dangerous. 4. Do not drive or operate machinery while on this medicine. 5. Narcotics do cause constipation, so drink plenty of fluids and daily stool softeners. Prescriptions: Oxycodone HCl/Acetaminophen [Percocet 5-325 mg Tablet] 1 - 2 tab PO ASDIR PRN # 25 tablet PRN Reason: Penicillin V Potassium [Penicillin Vk 500 mg Tablet] 500 mg PO QID #28 tablet Referrals: [facility] [Provider Group] - Follow up as needed (This is the number the free clinic affiliated with the hospital) [facility] [Provider Group] - Follow up tomorrow [facility]
== END 2017-03-12 15:54 | disposition home or self-care (01) ==
LOC: ER 14:59
DX: K06.8 Other specified disorders of gingiva and edentulous alveolar ridge (principal); K08.139 Complete loss of teeth due to caries, unspecified class; F17.210 Nicotine dependence, cigarettes, uncomplicated; I10 Essential (primary) hypertension; Z85.41 Personal history of malignant neoplasm of cervix uteri
CPT/HCPCS: 99282

== ENCOUNTER 2017-04-16 10:20 | Emergency (ER) | payer SELFPAY ==
[2017-04-16 10:26] VITALS: BP 156/103
[2017-04-16] MEDS ORDERED: BUPIVACAINE HCL 0.5 % INJ/PF 30 ML SDV INJ ONE (10:39)
--- NOTE | 2017-04-16 10:51 | ER Document Report ---
ED General - General Chief Complaint: Mouth Problem Stated Complaint: MOUTH PAIN Time Seen by Provider: 04/16/17 10:33 Mode of Arrival: Ambulatory Information source: Patient, [facility] Records Notes: 31 yr old female presents with gum pain. Pt notes that she has ill fitting dentures, noted irritation of the gums and now has a hole in the gums. denies any fevers or chills, admits to sensitivity to heat. TRAVEL OUTSIDE OF THE [place] IN LAST 30 DAYS: No - HPI Onset: Other - 4 days, had similar episode last month Onset/Duration: Persistent, Worse Quality of pain: Achy Severity: Mild Pain Level: 1 Associated symptoms: None Exacerbated by: Food Relieved by: Denies Similar symptoms previously: Yes Recently seen / treated by doctor: Yes - Related Data Allergies/Adverse Reactions: No Known Allergies Allergy (Verified 04/16/17 10:24) Past Medical History - Social History Smoking Status: Current Every Day Smoker Cigarette use (# per day): Yes Chew tobacco use (# tins/day): No Smoking Education Provided: No Frequency of alcohol use: None Drug Abuse: None Family History: CAD, COPD, CVA, DM, Hyperlipidemia, Hypertension, Malignancy, Thyroid Disfunction - Past Medical History Cardiac Medical History: Reports: Hx Hypertension Renal/ Medical History: Denies: Hx Peritoneal Dialysis Malignancy Medical History: Reports: Hx Cervical Cancer Musculoskeltal Medical History: Reports Hx Arthritis, Reports Hx Musculoskeletal Deformity, Reports Hx Musculoskeletal Trauma - bilateral ankles and clavicle fracture Traumatic Medical History: Reports: Hx Fractures - Ankle and clavicle Past Surgical History: Reports: Hx Cholecystectomy, Hx Gynecologic Surgery - Cervix removed, Hx Tubal Ligation - Immunizations Hx Diphtheria, Pertussis, Tetanus Vaccination: Yes Review of Systems - Review of Systems Notes: REVIEW OF SYSTEMS: CONSTITUTIONAL : Denies fever, chills, or sweats. Denies recent illness. EENT: admits to dental pain CARDIOVASCULAR: Denies chest pain. Denies palpitations or racing or irregular heart beat. Denies ankle edema. RESPIRATORY: Denies cough, cold, or chest congestion. Denies shortness of breath, difficulty breathing, or wheezing. GASTROINTESTINAL: Denies abdominal pain or distention. Denies nausea, vomiting , or diarrhea. Denies blood in vomitus, stools, or per rectum. Denies black, tarry stools. Denies constipation. GENITOURINARY: Denies difficulty urinating, painful urination, burning, frequency, blood in urine, or discharge. FEMALE GENITOURINARY: Denies vaginal bleeding, heavy or abnormal periods, irregular periods. Denies vaginal discharge or odor. MUSCULOSKELETAL: Denies back or neck pain or stiffness. Denies joint pain or swelling. SKIN: Denies rash, lesions or sores. HEMATOLOGIC : Denies easy bruising or bleeding. LYMPHATIC: Denies swollen, enlarged glands. NEUROLOGICAL: Denies confusion or altered mental status. Denies passing out or loss of consciousness. Denies dizziness or lightheadedness. Denies headache. Denies weakness or paralysis or loss of use of either side. Denies problems with gait or speech. Denies sensory loss, numbness, or tingling. Denies seizures. PSYCHIATRIC: Denies anxiety or stress. Denies depression, suicidal ideation, or homicidal ideation. ALL OTHER SYSTEMS REVIEWED AND NEGATIVE. PHYSICAL EXAMINATION: GENERAL: Well-appearing, well-nourished and in no acute distress. HEAD: Atraumatic, normocephalic. EYES: Pupils equal round and reactive to light, extraocular movements intact, conjunctiva are normal. ENT: Nares patent, oropharynx clear without exudates. Moist mucous membranes. no teeth on the bottom, there is mild gum irritation, appears t obe an expose root of a tooth on the left lower molar area NECK: Normal range of motion, supple without lymphadenopathy LUNGS: Breath sounds clear to auscultation bilaterally and equal. No wheezes rales or rhonchi. HEART: Regular rate and rhythm without murmurs ABDOMEN: Soft, nontender, nondistended abdomen. No guarding, no rebound. No masses appreciated. Female : deferred Musculoskeletal: Normal range of motion, no pitting or edema. No cyanosis. NEUROLOGICAL: Cranial nerves grossly intact. Normal speech, normal gait. Normal sensory, motor exams PSYCH: Normal mood, normal affect. SKIN: Warm, Dry, normal turgor, no rashes or lesions noted. Dictation was performed using [employer] voice recognition software Physical Exam - Vital signs Vitals: Temp Pulse Resp BP Pulse Ox 98.7 F 69 16 156/103 H 100 04/16/17 10:04/16/17 10:04/16/17 10:04/16/17 10:04/16/17 10:25 Course - Re-evaluation Re-evalutation: 04/16/17 10:48 at patients permission, dental block performed with complete relief, pt placed on antibiotics and pain control. pt encouraged to ofllow up with her dentist as this continues to be an issue with her dentures After performing a Medical Screening Examination, I estimate there is LOW risk for a DEEP SPACE INFECTION (e.g., MILENA'S ANGINA OR RETROPHARYNGEAL ABSCESS), MENINGITIS, INTRACRANIAL HEMORRHAGE, or AIRWAY COMPROMISE, thus I consider the discharge disposition reasonable. Also, there is no evidence or peritonitis, sepsis, or toxicity. I have reevaluated this patient multiple times and no significant life threatening changes are noted. The patient and I have discussed the diagnosis and risks, and we agree with discharging home with close follow-up with the understanding that symptoms and presentations can change. We also discussed returning to the Emergency Department immediately if new or worsening symptoms occur. We have discussed the symptoms which are most concerning (e.g., changing or worsening pain, trouble swallowing or breathing, neck stiffness or fever) that necessitate immediate return. - Vital Signs Vital signs: Temp Pulse Resp BP Pulse Ox 98.7 F 69 16 156/103 H 100 04/16/17 10:25 04/16/17 10:25 04/16/17 10:25 04/16/17 10:25 04/16/17 10:25 Procedures - Additional Procedures inferior alveolar nerve block Time performed: 10:49 - using 10 cc of 0.5 % bupivicaine with compelte relief no complication Discharge - Discharge Clinical Impression: gum irritation , Pain, dental Condition: Stable Disposition: HOME, SELF-CARE Instructions: Toothache ([facility]), Oral Narcotic Medication ([facility]) Additional Instructions: Please follow-up with your dentist for evaluation or return if there is any other concerns Prescriptions: Hydrocodone/Acetaminophen [[place] 5-325 mg Tablet] 1 tab PO Q6 #10 tablet Penicillin V Potassium [Penicillin Vk 500 mg Tablet] 500 mg PO QID #40 tablet
== END 2017-04-16 10:56 | disposition home or self-care (01) ==
LOC: ER 10:20
PROC: 3E0T3BZ Introduction of Anesthetic Agent into Peripheral Nerves and Plexi, Percutaneous Approach (ICD-10-PCS; principal; 2017-04-16)
DX: K13.79 Other lesions of oral mucosa (principal); I10 Essential (primary) hypertension; Z90.49 Acquired absence of other specified parts of digestive tract; Z98.51 Tubal ligation status; Z85.41 Personal history of malignant neoplasm of cervix uteri
CPT/HCPCS: 99282